=== PATIENT | male | born 2000 | race Caucasian/White ===

== ENCOUNTER 2021-10-25 16:37 | Emergency (ER) | payer SELFPAY ==
[2021-10-25 16:47] VITALS: BP 153/84; PULSE 84; RESP 18; TEMP 37.1; O2SAT 97; BMI 20.7
--- NOTE | 2021-10-25 17:29 | CTR_ITS ---
PROCEDURE INFORMATION: Exam: CT Head Without Contrast Exam date and time: 10/25/2021 5:29 PM Age: 20 years old Clinical indication: Pain; Headache; Aura effect not specified; Does respond to medication; Severity not specified; Patient HX: HX of migraine C/O dizziness and numbness; Additional info: Migraine with episode of dizziness TECHNIQUE: Imaging protocol: Computed tomography of the head without contrast. Radiation optimization: All CT scans at this facility use at least one of these dose optimization techniques: automated exposure control; mA and/or kV adjustment per patient size (includes targeted exams where dose is matched to clinical indication); or iterative reconstruction. COMPARISON: No relevant prior studies available. RADIATION DOSE METRICS: Total DLP (mGy-cm): 849.15 FINDINGS: Brain: Left frontal 2 cm cystic lesion suggestive of an area of encephalomalacia, negative for solid component, MRI could better characterize this non emergently. Cerebral ventricles: Left caudate nucleus punctate benign calcification is likely chronic. Paranasal sinuses: Visualized sinuses are unremarkable. No fluid levels. Mastoid air cells: Visualized mastoid air cells are well aerated. Bones/joints: Unremarkable. No acute fracture. Soft tissues: Unremarkable. CT/CT head wo con* [id number] IMPRESSION: 1. Left frontal 2 cm cystic lesion suggestive of an area of encephalomalacia, negative for solid component, MRI could better characterize this non emergently. 2. Left caudate nucleus punctate benign calcification is likely chronic.
--- NOTE | 2021-10-25 17:30 | ED_ITS ---
Documented by User: DARNELL Rosa 10/25/21 22:27 HPI - Headache General: Chief Complaint: Headache Stated Complaint: Migraine, chest pain, sob, numbess all over, pain Time Seen by Provider: 10/25/21 17:07 History of Present Illness: Patient is a 20-year-old male who comes to the ED with migraine and dizziness. Symptoms started earlier today. Patient has a history of migraines. He started developing his typical migraine earlier today. He had some photophobia, nausea as well. He started feeling a little dizzy later in the day at the end of his shift at work. He then started hyperventilating and began to feel some numbness and tingling to his feet and hands bilaterally. The hyperventilating resolved and the numbness and tingling in his hands and feet resolved before coming to the ED as well. Patient took 400 mg of ibuprofen before coming to the ED and says his headache has improved a lot. He rates his headache is mild and does not need any other medication to treat headache. Right now he describes his headache is just a very light p ressure in the back of his head. He denies any current dizziness. Associated symptoms: Deny chest pain, fever(s), nausea, rash or vomiting Review of Systems Const: Denies: fever(s), chills or fatigue Eyes: Denies: change in vision or eye discomfort ENMT: Denies: throat pain, odynophagia, nasal discharge or nasal congestion Card: Denies: chest pain, palpitations, edema, swelling of feet/ankles, dy spnea on exertion or orthopnea Resp: Denies: dyspnea, productive cough or non-productive cough GI: Denies: abdominal pain, nausea, vomiting, diarrhea, constipation or hematochezia : Denies: flank pain, difficulty urinating, dysuria or hematuria Musc: Denies: neck pain, back pain or extremity swelling Skin/Breast: Denies: rash or new lesions Neuro: Reports: headache(s) and dizziness (resolved before coming to the ED); Denies: numbness in extremities or weakness in extremities PFS ED PFSH: Medical History Family history of stroke or transient ischemic attack in father Surgical History No pertinent past surgical history Physical Exam Const: COMMON NORMALS: no acute distress, patient oriented x3, healthy appearing and alert GENERAL APPEARANCE: cooperative and comfortable HENMT: COMMON NORMALS: normocephalic HEAD & SCALP: normocephalic MOUTH: Normal oral and palatal mucosa present THROAT: posterior oropharynx normal and uvula midline Eye: COMMON NORMALS: Equal, round and reactive pupils present, EOMs intact bilaterally and conjunctivae normal CONJUNCTIVA: Yes conjunctivae normal PUPIL: Yes Equal, round and reactive pupils present Neck/C-Spine: COMMON NORMALS: supple GENERAL: Yes normal visual inspection Resp: COMMON NORMALS: normal respiratory effort, No retractions, No use of accessory muscles and clear to auscultation bilaterally AUSCULTATION: clear to auscultation bilaterally Cardio: COMMON NORMALS: regular rate, regular rhythm, S1 normal heart sound present, S2 normal heart sound present, No gallops present (Cardio), No clicks present (Cardio), No murmurs present (Cardio) and Peripheral pulses 2+ throughout RATE: regular rate RHYTHM: regular rhythm HEART SOUNDS: S1 normal heart sound present and S2 normal heart sound present PERIPHERAL PULSES: Peripheral pulses 2+ throughout GI: COMMON NORMALS: Normal to inspection, nondistended, normoactive bowel sounds present, Soft to palpation, non-tender and no masses PALPATION: Yes Soft to palpation : COMMON NORMALS: Yes no CVA tenderness BLADDER/KIDNEY EXAM: Yes no CVA tenderness Back/Pelvis: COMMON NORMALS: no CVA tenderness Extremity: COMMON NORMALS: normal to inspection Neuro: COMMON NORMALS: patient oriented x3, CN's II-XII intact bilaterally, moves all extremities, no focal motor deficits and no sensory deficits noted SENSORIUM/ORIENTATION: Yes alert SPEECH: speech normal GAIT: Yes Normal gait present SENSORY EXAM: Yes extremities (intact) MOTOR EXAM: 5/5 motor strength present throughout Skin: GENERAL SKIN EXAM: dry skin Course Vital Signs: Vital signs: Vital Signs Temperature 98.7 F 10/25/21 16:47 Pulse Rate 74 10/25/21 19:54 Respiratory Rate 16 10/25/21 19:54 Blood Pressure 120/72 10/25/21 19:54 Pulse Oximetry 98 10/25/21 19:54 MDM - Headache Medical Decision Making Patient is a 20-year-old male comes to the ED with a headache and some diz ziness. Patient has had history of headaches before but this is the first time he has had one where he gets dizzy. Most of his symptoms had resolved by the time he arrived in the ED. Vitals are stable. Exam is benign and neuro exam showed no deficits. CBC and BMP were unremarkable. CT of head showed a 2 cm lesion in the frontal lobe. Radiologist recommended a nonemergent MRI to better characterize lesion. I placed an order with case management for patient referred for an outpatient MRI of head. Patient was stable for discharge home. He was diagnosed with a headache and a lesion of frontal lobe of brain. He was told to follow-up with his PCP in the next 7 to 10 days reevaluation. I told him adult protective caseworker will contact them next several days to set up an outpatient MRI of head. Return to ED precautions given. Patient understood agree with plan. Lab Data I reviewed the patient's lab results. : 10/25/21 18:50 10/25/21 18:[address] 10/25/21 17:29 IMPRESSION: 1. Left frontal 2 cm cystic lesion suggestive of an area of encephalomalacia, negative for solid component, MRI could better characterize this non emergently. 2. Left caudate nucleus punctate benign calcification is likely chronic. Laboratory Results WBC 12.1 10^3/uL (4.0-10.0) H 10/25/21 18:50 RBC 4.98 10^6/uL (4.1-5.3) 10/25/21 18:50 Hgb 14.8 g/dL (11.7-16.6) 10/25/21 18:50 Hct 44.5 % (42.0-52.0) 10/25/21 18:50 MCV 89.4 fl (80-94) 10/25/21 18:50 MCH 29.7 pg (28.0-34.0) 10/25/21 18:50 MCHC 33.3 g/dL (30.0-36.0) 10/25/21 18:50 RDW 12.8 % (12.1-15.1) 10/25/21 18:50 Plt Count 330 10^3/cmm (130-400) 10/25/21 18:50 MPV 9.5 fL (7.4-10.4) 10/25/21 18:50 Neut % (Auto) 74.2 % 10/25/21 18:50 Lymph % (Auto) 15.4 % 10/25/21 18:50 Desha % (Auto) 8.4 % 10/25/21 18:50 Eos % (Auto) 1.0 % 10/25/21 18:50 Baso % (Auto) 0.7 % 10/25/21 18:50 Neut # (Auto) 8.99 10^3/uL (1.8-7.7) H 10/25/21 18:50 Lymph # (Auto) 1.9 10^3/uL (0.8-4.8) 10/25/21 18:50 Desha # (Auto) 1.0 10^3/uL (0.2-0.9) H 10/25/21 18:50 Eos # (Auto) 0.1 10^3/uL (0.0-0.8) 10/25/21 18:50 Baso # (Auto) 0.1 10^3/uL (0.0-0.1) 10/25/21 18:50 Nucleated RBC % (auto) 0 % 10/25/21 18:50 Nucleated RBCs # 0.0 /100WBC 10/25/21 18:50 Sodium 139 mmol/L (136-145) 10/25/21 18:50 Potassium 3.8 mmol/L (3.5-5.1) 10/25/21 18:50 Chloride 100 mmol/L (98-107) 10/25/21 18:50 Carbon Dioxide 28 mmol/L (22-29) 10/25/21 18:50 Anion Gap 14.8 (5-19) 10/25/21 18:50 BUN 12 mg/dL (6-20) 10/25/21 18:50 Creatinine 0.8 mg/dL (0.7-1.2) 10/25/21 18:50 GFR Calculation 122.0 mL/min (90-130) 10/25/21 18:50 Glucose 106 mg/dL (65-115) 10/25/21 18:50 Calculated Osmolality 288 mOsm/kg (285-295) 10/25/21 18:50 Calcium 10.3 mg/dL (8.5-10.5) 10/25/21 18:50 Discharge Plan Discharge Patient Disposition: Home Clinical Impression: Headache, Lesion of frontal lobe of brain Condition: Stable Discharge Orders: Discharge ED (Routine); Ordered 10/25/21 Ordered By: Syed Murphy Discharge Diet: Regular Discharge Activity: Increase activity as tolerated Patient Instructions: Acute Headache (ED) Activity Restrictions/Additional Instructions: Follow-up with primary care physician in the next 7 to 10 days reevaluation. Case management should be contacting you in the next several days to set up an appointment for patient to get an outpatient MRI of head. Return to the ER or your medical provider if condition worsens. Please read and understand discharge instructions. Thank you for choosing [facility] for your healthcare needs today. Please realize this is an emergency room and that we are providing you with a medical screening exam and this may not be complete and all inclusive of all the testing and or work up that you may need to determine your ailment or severity of your illness. It is very important that you follow up as instructed or that you return to the Emergency Department should you have concerns or if your condition changes or worsens in any way. Coding Level of Care Code ED Swimming Instructor for Chg Fwd Exam Comprehensive Documented by User: Messi Carlson MD 11/04/21 16:41 HPI - Headache General: Chief Complaint: Headache Stated Complaint: Migraine, chest pain, sob, numbess all over, pain Time Seen by Provider: 10/25/21 17:07 [facility] ED PFSH: Medical History Family history of stroke or transient ischemic attack in father Surgical History No pertinent past surgical history Course Vital Signs: Vital signs: Vital Signs Temperature 98.7 F 10/25/21 16:47 Pulse Rate 74 10/25/21 19:54 Respiratory Rate 16 10/25/21 19:54 Blood Pressure 120/72 10/25/21 19:54 Pulse Oximetry 98 10/25/21 19:54 MDM - Headache Medical Decision Making Patient is a 20-year-old male comes to the ED with a headache and some dizziness. Patient has had history of headaches before but this is the first time he has had one where he gets dizzy. Most of his symptoms had resolved by the time he arrived in the ED. Vitals are stable. Exam is benign and neuro exam showed no deficits. CBC and BMP were unremarkable. CT of head showed a 2 cm lesion in the frontal lobe. Radiologist recommended a nonemergent MRI to better characterize lesion. I placed an order with case management for patient referred for an outpatient MRI of head. Patient was stable for discharge home. He was diagnosed with a headache and a lesion of frontal lobe of brain. He was told to follow-up with his PCP in the next 7 to 10 days reevaluation. I told him adult protective caseworker will contact them next several days to set up an outpatient MRI of head. Return to ED precautions given. Patient understood agree with plan. I discussed this case with DARNELL Rosa. I reviewed this documentation. Messi Carlson MD Emergency Medicine Lab Data : 10/25/21 18:50 10/25/21 18:[address] 10/25/21 17:29 IMPRESSION: 1. Left frontal 2 cm cystic lesion suggestive of an area of encephalomalacia, negative for solid component, MRI could better characterize this non emergently. 2. Left caudate nucleus punctate benign calcification is likely chronic. Laboratory Results WBC 12.1 10^3/uL (4.0-10.0) H 10/25/21 18:50 RBC 4.98 10^6/uL (4.1-5.3) 10/25/21 18:50 Hgb 14.8 g/dL (11.7-16.6) 10/25/21 18:50 Hct 44.5 % (42.0-52.0) 10/25/21 18:50 MCV 89.4 fl (80-94) 10/25/21 18:50 MCH 29.7 pg (28.0-34.0) 10/25/21 18:50 MCHC 33.3 g/dL (30.0-36.0) 10/25/21 18:50 RDW 12.8 % (12.1-15.1) 10/25/21 18:50 Plt Count 330 10^3/cmm (130-400) 10/25/21 18:50 MPV 9.5 fL (7.4-10.4) 10/25/21 18:50 Neut % (Auto) 74.2 % 10/25/21 18:50 Lymph % (Auto) 15.4 % 10/25/21 18:50 Desha % (Auto) 8.4 % 10/25/21 18:50 Eos % (Auto) 1.0 % 10/25/21 18:50 Baso % (Auto) 0.7 % 10/25/21 18:50 Neut # (Auto) 8.99 10^3/uL (1.8-7.7) H 10/25/21 18:50 Lymph # (Auto) 1.9 10^3/uL (0.8-4.8) 10/25/21 18:50 Desha # (Auto) 1.0 10^3/uL (0.2-0.9) H 10/25/21 18:50 Eos # (Auto) 0.1 10^3/uL (0.0-0.8) 10/25/21 18:50 Baso # (Auto) 0.1 10^3/uL (0.0-0.1) 10/25/21 18:50 Nucleated RBC % (auto) 0 % 10/25/21 18:50 Nucleated RBCs # 0.0 /100WBC 10/25/21 18:50 Sodium 139 mmol/L (136-145) 10/25/21 18:50 Potassium 3.8 mmol/L (3.5-5.1) 10/25/21 18:50 Chloride 100 mmol/L (98-107) 10/25/21 18:50 Carbon Dioxide 28 mmol/L (22-29) 10/25/21 18:50 Anion Gap 14.8 (5-19) 10/25/21 18:50 BUN 12 mg/dL (6-20) 10/25/21 18:50 Creatinine 0.8 mg/dL (0.7-1.2) 10/25/21 18:50 GFR Calculation 122.0 mL/min (90-130) 10/25/21 18:50 Glucose 106 mg/dL (65-115) 10/25/21 18:50 Calculated Osmolality 288 mOsm/kg (285-295) 10/25/21 18:50 Calcium 10.3 mg/dL (8.5-10.5) 10/25/21 18:50 Discharge Plan Discharge Patient Disposition: Home Clinical Impression: Headache, Lesion of frontal lobe of brain Condition: Stable Discharge Orders: Discharge ED (Routine); Ordered 10/25/21 Ordered By: Syed Murphy Discharge Diet: Regular Discharge Activity: Increase activity as tolerated Patient Instructions: Acute Headache (ED) Activity Restrictions/Additional Instructions: Follow-up with primary care physician in the next 7 to 10 days reevaluation. Case management should be contacting you in the next several days to set up an appointment for patient to get an outpatient MRI of head. Return to the ER or your medical provider if condition worsens. Please read and understand discharge instructions. Thank you for choosing [facility] for your healthcare needs today. Please realize this is an emergency room and that we are providing you with a m edical screening exam and this may not be complete and all inclusive of all the testing and or work up that you may need to determine your ailment or severity of your illness. It is very important that you follow up as instructed or that you return to the Emergency Department should you have concerns or if your condition changes or worsens in any way. Coding Level of Care Code ED Swimming Instructor for Joaquin Fwd Exam Comprehensive
[2021-10-25 19:04] LABS: Basophils # 0.1 10^3/uL (0.0-0.1); Basophils % 0.7 %; Eosinophils # 0.1 10^3/uL (0.0-0.8); Hematocrit 44.5 % (42.0-52.0); Hemoglobin 14.8 g/dL (11.7-16.6); Lymphocytes # 1.9 10^3/uL (0.8-4.8); Lymphocytes % 15.4 %; Mean Corpuscular HGB Conc 33.3 g/dL (30.0-36.0); Mean Corpuscular Hemoglobin 29.7 pg (28.0-34.0); Mean Corpuscular Volume 89.4 fl (80-94); Mean Platelet Volume 9.5 fL (7.4-10.4); Monocytes % 8.4 %; Neutrophils # 8.99 10^3/uL (1.8-7.7); Neutrophils % 74.2 %; Nucleated Red Blood Cells % 0 %; Platelet Count 330 10^3/cmm (130-400); Red Blood Count 4.98 10^6/uL (4.1-5.3); Red Cell Distribution Width 12.8 % (12.1-15.1); White Blood Count 12.1 10^3/uL (4.0-10.0)
[2021-10-25 19:25] LABS: Anion Gap 14.8 (5-19); Blood Urea Nitrogen 12 mg/dL (6-20); Calcium 10.3 mg/dL (8.5-10.5); Carbon Dioxide 28 mmol/L (22-29); Chloride 100 mmol/L (98-107); Creatinine Clr Calc Pharmacy 149.1921; Glucose 106 mg/dL (65-115); Osmolality Calculated 288 mOsm/kg (285-295); Potassium 3.8 mmol/L (3.5-5.1); Sodium 139 mmol/L (136-145)
[2021-10-25 19:54] VITALS: BP 120/72; PULSE 74; RESP 16; O2SAT 98
--- NOTE | 2021-10-29 06:15 | DCPLANNER ---
Addendum entered by Yee Moncada 05/13/22 14:44: no self-pay clearance received Original Note: account manager [email or web address] had message to schedule an out patient MRI for patient. account manager [email or web address] faxed signed order to centralized scheduling, who will call patient with appointment information.
== END 2021-10-25 19:55 | disposition home or self-care (01) ==
PROVIDERS: Emergency Provider Physician Assistant
DX: R51.9 Headache, unspecified (principal); G93.89 Other specified disorders of brain
CPT/HCPCS: 70450; 80048; 85025; 99283